=== PATIENT | female | born 1965 | race Caucasian/White ===

== ENCOUNTER → 2024-02-18 10:12 | Outpatient (REF) | payer BC, SELFPAY ==
--- NOTE | 2024-02-18 11:25 | CARDSERVLU ---
Echocardiogram with Lumason completed after protocol screening completed. Allergies verified.
Patent IV site: Rt hand
IV site flushed with 0.9% NaCl pre and post administration.
Diluted bolus method utilized to enhance visualization of ventricular vaca.
Total volume given: _4___ mL
Patient tolerated all procedures well without complications.
#22 tania placed Rt hand. Lumason given. INT removed. dsg applied and pressure held. No bleeding noted.
== END ==
LOC: RCS 10:12
PROVIDERS: ATTENDING PHYSICIAN Internal Medicine Cardiovascular Disease; FAMILY PHYSICIAN Family Medicine
DX: I25.5 Ischemic cardiomyopathy (principal)
CPT/HCPCS: 93306; Q9950

== ENCOUNTER 2024-08-23 19:38 | Emergency (ER) | payer BC, SELFPAY ==
[2024-08-23 19:40] VITALS: BP 193/113
[2024-08-23 20:08] LABS: % Basophils 0.3 % (0-2); % Eosinophils 0.2 % (0-6); % Immature Granulocytes 0.2 % (0-0.5); % Lymphocytes 44.6 % (20.5-51.1); % Monocytes 14.8 % (1.7-9.3); % Neutrophils 39.9 % (42.2-75.2); Absolute Lymphocytes 2.9 10^3/uL (1.2-3.4); Absolute Neutrophils 2.6 10^3/uL (1.4-6.5); Hematocrit 37.3 % (37.0-47.0); Hemoglobin 12.6 g/dL (12.0-16.0); Mean Corp Hgb Conc. 33.8 g/dL (33.0-37.0); Mean Corpuscular Hgb 29.7 pg (27.0-31.0); Mean Platelet Volume 11.3 fL (7.4-10.4); Nucleated Red Blood Cells % 0 %; Platelet Count 197 10^3/uL (130-400); Red Blood Cell Count 4.24 10^6/uL (4.20-5.40); Red Cell Dist. Width 15.1 % (11.5-14.5); White Blood Cell Count 6.4 10^3/uL (4.8-10.8)
[2024-08-23 20:26] LABS: ALT (SGPT) 32 U/L (0-35); AST (SGOT) 27 U/L (14-36); Albumin 4.1 g/dl (3.5-5.0); Alkaline Phosphatase 45 U/L (38-126); Blood Urea Nitrogen 8 mg/dl (7-17); Calcium 9.5 mg/dl (8.4-10.2); Carbon Dioxide 29 mmol/L (22-30); Chloride 103 mmol/L (98-107); Glucose 117 mg/dl (70-99); Potassium 3.9 mmol/L (3.5-5.1); Sodium 139 mmol/L (135-145); Total Bilirubin 0.4 mg/dl (0.2-1.3); Total Protein 6.5 g/dl (6.3-8.2); eGFR > 60.00
[2024-08-23 20:33] LABS: Troponin I < 0.012 ng/ml
--- NOTE | 2024-08-23 20:41 | ED.GENMED ---
History of Present Illness
General
Chief Complaint: Chest Pain
Source: patient
Exam Limitations: none
Time Seen by Provider: 08/23/24 20:39
Nursing documentation reviewed up to this point in time: agreed with
History of Present Illness
History of Present Illness:
Patient is a 58-year-old female with history of previous NM with stent, polychondritis presents to the ER for evaluation of chest pain. Patient reports she had her second Remicade infusion on August 17 and started with chest pain that night and
has had pain since. She reports when she leans very far forward she has slight relief of chest pressure but otherwise she has had constant pressure. Very minimal shortness of breath. She denies any fever chills. She does have a history of
costochondritis and this does feel similar but she reports her episodes typically go away and this has not resolved.
No prior history of PE DVT
Past History
Past History
ED Past Medical History: CAD, GERD, HTN, Hypercholesterolemia, Other (Sleep apnea) and Other (Relapsing polychondritis)
ED Past Surgical History: Cardiac (Stent), Cholecystectomy, and Tonsilectomy
Social History
Tobacco: Former smoker
Alcohol: None
Drug: None
Personal:
Living: with family
Review of Systems
Review of Systems
Allergies reviewed?: Yes
All Other Systems: ROS reviewed and negative except as documented in HPI and ROS
Constitutional: Reports no symptoms; Denies fever, fatigue or chills
EENT: Reports no symptoms
Respiratory: Reports trouble breathing (mild SOB ); Denies cough
Cardiac: Reports chest pain; Denies diaphoresis, palpitations or syncope
ABD/GI: Reports no symptoms
: Reports no symptoms
Musculoskeletal: Reports no symptoms
Skin: Reports no symptoms
Neurological: Reports no symptoms
Psychiatric: Reports no symptoms
Phy Exam
General Physical Exam
General Presentation: no apparent distress
General age: appears stated age
General Skin: warm and dry
General Habitus: normal
General Mental: alert
General Hydration: appears well hydrated
Cardiovascular Exam
Cardiovascular Exam: regular rate/rhythm, no murmur and normal peripheral pulses
Pulmonary Exam
Pulmonary Exam: lungs clear and no respiratory distress
Neurological Exam
Neurological Exam: alert and oriented x3
Musculoskeletal Exam
Musculoskeletal Exam: full ROM
Skin Exam
Skin Exam: normal color and warm/dry
Psychiatric Exam
Psychiatric Exam: normal mood/affect
Scores
Heart Score for Chest Pain Patients
STEMI patient?: Not applicable
Course
Orders/Labs/Results
Orders:
Orders
08/23/24 19:44
Electrocardiogram (*1) Urgent
Reason for Study: Chest Pain
EKG- Treatment ONCE
08/23/24 19:59
Complete Blood Count/With Diff Urgent
Comprehensive Metabolic Panel Urgent
Troponin I Urgent
08/23/24 20:55
CT Chest Pe Study Urgent
Comment:
Reason For Exam: cp
08/23/24 20:56
Ketorolac [Toradol] 15 mg IV NOW STA
Abnormal Lab Results
08/23/24
19:59
RDW 15.1 H %
(11.5-14.5)
MPV 11.3 H fL
(7.4-10.4)
Absolute Monos (auto) 1.0 H 10^3/uL
(0.1-0.6)
Neutrophils % 39.9 L %
(42.2-75.2)
Monocytes % 14.8 H %
(1.7-9.3)
Glucose 117 H mg/dl
(70-99)
08/23/24 19:59
08/23/24 19:59
Vital Signs
Initial and Last Documented VS:
Initial Vital Signs
Temp Pulse Resp BP Pulse Ox
97.5 F 77 16 193/113 99
08/23/24 19:40 08/23/24 19:40 08/23/24 19:40 08/23/24 19:40 08/23/24 19:40
Last Documented Vital Signs
Temp Pulse Resp BP Pulse Ox
97.5 F 61 9 185/94 99
08/23/24 19:40 08/23/24 21:15 08/23/24 21:15 08/23/24 21:14 08/23/24 21:15
Digital Media Representative consulted with Physician
Digital Media Representative consulted with physician?: Yes
Name of Physician Consulted: Dmitri
MDM/Problems Addressed
MDM/Problems Addressed:
As documented patient is a 58-year-old female with above medical history presented with chest discomfort after Remicade infusion August 17. She does have a history of costochondritis that has felt similar but has not resolved like her previous
episodes. She does have a history of NM and she is on aspirin. No prior history of PE DVT she is not on any other blood thinners. Patient presents in no acute distress nontachycardic nontachypneic negative cardiac troponin CAT scan was done which
was negative for PE, the thoracic aorta is normal in caliber and homogenous in appearance
No acute findings on EKG. Patient was given Toradol which has helped her symptoms. She also has tramadol at home. With costochondritis in the past her line maintainer section has increased her steroids we will have her follow-up/call her line maintainer section
tomorrow morning for outpatient reevaluation
Chronic conditions affecting care:
previous NM, polychondritis
*Radiology
Radiology exam reviewed: radiology read reviewed
*Pulse Oximetry
Patient hypoxic: no
*EKG
Interpreted by ED Provider?: Yes
Interpretation: normal
Comparison EKG: no comparison EKG present
Heart Rate: 72
Rate: normal
Rhythm: sinus
Ischemia: no ischemia
*Critical Care Note
Total Time (30-74mins, 75-104mins- exclusive of procedures): Not Applicable
ED Attending Note
-
Portions of this chart may have been created with voice recognition software.� Occasional wrong word or��sound alike� substitutions may have occurred due to the inherent limitations of voice recognition software.
Discharge Plan
Departure
Patient Disposition: Home (Routine Discharge)
Date of Disposition: 08/23/24
Time of Disposition: 23:49
Patient with high blood pressure during this ER visit?: Yes
Condition: Fair
Covid-19: Not Applicable
Discharge Problem:
Chest pain
Instructions: Chest Pain That Is Not Caused by the Heart (DC)
Prescriptions:
No Action
cetirizine [Zyrtec] 10 mg Tablet
10 mg PO DAILY
esomeprazole magnesium [Nexium] 40 mg Capsule,Delayed Release(Dr/Ec)
40 mg PO DAILY
gabapentin 300 mg Capsule
300 mg PO TID
tizanidine 2 mg Capsule
2 mg PO HS PRN (Reason: muscle spasms)
aspirin [Adult Aspirin Regimen] 81 mg tablet,delayed release (DR/EC)
81 mg PO DAILY Qty: 90 5RF
furosemide [Lasix] 20 mg tablet
20 mg PO DAILY PRN (Reason: edema) Qty: 30 5RF
Brilinta 90 mg tablet
90 mg PO BID Qty: 60 11RF
rosuvastatin 40 mg tablet
40 mg PO DAILY Qty: 30 5RF
metoprolol succinate [Toprol XL] 25 mg tablet extended release 24 hr
12.5 mg PO DAILY Qty: 30 5RF
pantoprazole 40 mg tablet,delayed release (DR/EC)
40 mg PO DAILY Qty: 30 0RF
alum-mag hydroxide-simeth [Maalox Maximum Strength] 400-400-40 mg/5 mL suspension
5 ml PO QID PRN (Reason: indigestion) Qty: 200 0RF
Referrals:
Vega Honeycutt MD [Family Provider] -
Activity Restrictions/Additional Instructions:
As discussed you may take your Tylenol for pain. Your cardiac labs as well as your CAT scan was unremarkable.
It is possible that this is costochondritis, muscular chest pain. Return if any worsening of symptoms. Follow-up with your line maintainer section the next several days .
Interventions
Interventions:
*Risk Screen - Suicide Last Done: 08/23/24 19:40
*General Assessment Last Done: 08/23/24 21:14
*Neglect/Abuse Screening Last Done: 08/23/24 19:40
ED- Fall Risk Assessment Last Done: 08/23/24 21:15
*ED COVID-19 Vaccine History Last Done: 08/23/24 21:14
ED- Cardiac Assessment Last Done: 08/23/24 20:44
Discharge Date and Time
Print Language: BRAZILIAN
[2024-08-23 20:43] VITALS: BP 184/115
[2024-08-23 21:00] VITALS: BP 151/116
[2024-08-23] MEDS: TORADOL 15 MG IV (21:07)
[2024-08-23 21:13] VITALS: BMI 37.1
[2024-08-23 21:14] VITALS: BP 185/94
[2024-08-23 23:51] VITALS: BP 182/90
== END 2024-08-24 00:06 | disposition home or self-care (01) ==
LOC: EMR 19:38
PROVIDERS: Student in an Organized Health Care Education/Training Program; EMERGENCY PHYSICIAN Emergency Medicine; FAMILY PHYSICIAN Family Medicine
DX: R07.89 Other chest pain (principal); I25.10 Atherosclerotic heart disease of native coronary artery without angina pectoris; K21.9 Gastro-esophageal reflux disease without esophagitis; I10 Essential (primary) hypertension; E78.00 Pure hypercholesterolemia, unspecified; G47.30 Sleep apnea, unspecified; I25.2 Old myocardial infarction; Z87.891 Personal history of nicotine dependence; Z90.49 Acquired absence of other specified parts of digestive tract; Z95.5 Presence of coronary angioplasty implant and graft; M94.1 Relapsing polychondritis
CPT/HCPCS: 99284; 96374; 71275; 80053; 84484; 85025; 93005; Q9967

== ENCOUNTER → 2024-12-27 15:48 | Outpatient (REF) | payer BC, SELFPAY | LOC: RCS 15:48 | PROVIDERS: ATTENDING PHYSICIAN Nurse Practitioner; FAMILY PHYSICIAN Family Medicine | DX: R01.1 Cardiac murmur, unspecified (principal) | CPT/HCPCS: 93306 ==

== ENCOUNTER → 2025-08-24 12:53 | Outpatient (REF) | payer BC, SELFPAY | LOC: RCS 12:53 | PROVIDERS: ATTENDING PHYSICIAN Internal Medicine Cardiovascular Disease; FAMILY PHYSICIAN Family Medicine | DX: I77.810 Thoracic aortic ectasia (principal) | CPT/HCPCS: 93306 ==